=== PATIENT | male | born 1960 | race Caucasian/White ===

== ENCOUNTER 2018-04-05 08:54 | Day surgery (SDC) | payer OTHER ==
[~2018-04-05 08:54] MED LIST: CEFAZOLIN 1 GM INJ; CIPROFLOXACIN 400 MG in D5W 200 ML IVPB; SUCCINYLCHOLINE CHLORIDE 100 MG/5 ML SYG IV
[2018-04-05 10:06] LABS: ADD MAN DIFF? NO
[2018-04-05 10:08] LABS: BASOPHIL # 0.1 10^3/ul (0.0-0.1); BASOPHILS % 0.5 % (0.0-2.0); EOSINOPHILS # 0.1 10^3/ul (0.0-0.5); EOSINOPHILS % 1.1 % (0.0-7.0); HEMATOCRIT 45.6 % (42.0-52.0); HEMOGLOBIN 15.2 g/dl (14.0-18.0); LYMPHOCYTES # 1.9 10^3/ul (0.8-2.9); MEAN CORPUSCULAR HEMOGLOBIN 29.1 pg (29.0-33.0); MEAN CORPUSCULAR HGB CONC 33.3 g/dl (32.0-37.0); MEAN CORPUSCULAR VOLUME 87.2 fl (82.0-101.0); MEAN PLATELET VOLUME 10.1 fl (7.4-10.4); MONOCYTE # 0.9 10^3/ul (0.3-0.9); MONOCYTES % 7.7 % (0.0-11.0); NEUTROPHIL # 8.2 10^3/ul (1.6-7.5); NEUTROPHILS % 73.2 % (39.0-77.0); PLATELET COUNT 268 10^3/UL (140-415); RED BLOOD COUNT 5.23 10^6/ul (4.70-6.10)
[2018-04-05 10:08] LABS: WHITE BLOOD COUNT 11.2 10^3/ul (4.8-10.8)
[2018-04-05 10:28] LABS: ALANINE AMINOTRANSFERASE 35 IU/L (13-69); ALBUMIN 4.5 g/dl (3.3-4.9); ALBUMIN/GLOBULIN RATIO 1.55; ALKALINE PHOSPHATASE 96 IU/L (42-121); ANION GAP 17 (8-16); ASPARTATE AMINO TRANSFERASE 22 IU/L (15-46); BILIRUBIN,INDIRECT 0.8 mg/dl (0-1.1); BILIRUBIN,TOTAL 0.8 mg/dl (0.2-1.3); CARBON DIOXIDE 29 mmol/L (21-31); CHLORIDE 101 mmol/L (97-110); GLUCOSE 140 mg/dl (70-220); TOTAL PROTEIN 7.4 g/dl (6.1-8.1)
[2018-04-05 10:30] LABS: BLOOD UREA NITROGEN 17 mg/dl (7-20); CALCIUM 9.7 mg/dl (8.4-10.2); CREATININE 0.84 mg/dl (0.61-1.24); POTASSIUM 4.1 mmol/L (3.5-5.1); SODIUM 143 mmol/L (135-144)
[2018-04-05 10:36] LABS: INR 0.98; PROTIME 13.1 Sec (11.9-14.9)
[2018-04-05 10:37] LABS: PARTIAL THROMBOPLASTIN TIME 34.5 Sec (25.0-35.0)
[2018-04-05] MEDS ORDERED: FENTAnyl 50 MCG/ML VIAL (10:39)
[2018-04-05] MEDS ORDERED: NEOSTIGMINE 3 MG/3 ML SYRINGE (10:39)
[2018-04-05] MEDS ORDERED: MIDAZOLAM 1 MG/ML 2 ML INJ (10:39)
[2018-04-05] MEDS ORDERED: LIDOCAINE 2% (SDV) 5 ML INJ (10:39)
[2018-04-05] MEDS ORDERED: GLYCOPYRROLATE 0.4 MG INJ (10:39)
[2018-04-05] MEDS ORDERED: ROCURONIUM 50 MG INJ (10:39)
[2018-04-05] MEDS ORDERED: PROPOFOL 20 ML (10:39)
[2018-04-05] MEDS ORDERED: DEXAMETHASONE 4 MG/ML 1 ML INJ (10:40)
[2018-04-05] MEDS ORDERED: ONDANSETRON 4 MG INJ ×2 (10:40→12:09)
[2018-04-05] MEDS ORDERED: SUGAMMADEX SODIUM 200 MG/2 ML VIAL IV (11:19)
[2018-04-05] MEDS ORDERED: OXYCODONE/ACETAMINOPHEN (5/325) TAB PO (12:00)
[2018-04-05] MEDS ORDERED: HYDROmorphONE 1 MG/5 ML IV SYRINGE IV ×2 (12:00→12:09)
[2018-04-05] MEDS: ONDANSETRON 4 MG INJ IV (12:11)
[2018-04-05] MEDS: HYDROmorphONE 1 MG/5 ML IV SYRINGE IV ×2 (12:11→12:29)
[2018-04-05] MEDS: OXYCODONE/ACETAMINOPHEN (5/325) TAB PO (13:19)
== END 2018-04-05 14:40 | disposition home or self-care (01) ==
LOC: SDS 08:54
DX: N21.0 Calculus in bladder (principal); E11.9 Type 2 diabetes mellitus without complications; I10 Essential (primary) hypertension; E66.01 Morbid (severe) obesity due to excess calories; Z68.41 Body mass index [BMI] 40.0-44.9, adult; E78.5 Hyperlipidemia, unspecified
CPT/HCPCS: 50961; 80053; 82962; 85025; 85610; 85730; 88300